=== PATIENT | female | born 1990 | race American Indian/Alaskan Native ===

== ENCOUNTER 2017-05-12 15:14 | Emergency (ER) | payer OTHER, MEDICAID ==
[2017-05-12] MEDS ORDERED: Sodium Chloride 0.9% 10 ML Syringe FLUSH PRN (15:15)
[2017-05-12] MEDS ORDERED: HYDROmorphone 1 MG/ML Syringe IVPUSH ONE (15:15)
[2017-05-12 15:23] VITALS: BP 132/80
[2017-05-12] MEDS ORDERED: HYDROmorphone 1 MG/ML Syringe IM ONE (15:43)
[2017-05-12 15:51] LABS: CHLORIDE,CL 102 mmol/L (101-111); SODIUM,NA 132 mmol/L (135-145)
[2017-05-12] MEDS ORDERED: Insulin Regular, Human 100 Units/ML 3 ML Vial IV ONE (16:15)
--- NOTE | 2017-05-22 07:36 | EDM.PDOC ---
Scribed by Ludy Christianson 05/12/17 [id number] for Moni Degroot NP ED HPI GENERAL MEDICAL PROBLEM - General Chief Complaint: Lower Extremity Injury/Pain Stated Complaint: CAME BY AMBULANCE Time Seen by Provider: 05/12/17 15:35 Source of Information: Reports: Patient, EMS, EMS Notes Reviewed, RN History Limitations: Reports: No Limitations - History of Present Illness INITIAL COMMENTS - FREE TEXT/NARRATIVE: Patient presents by [facility]. She was at work when a safe fell on her left lower leg up to the knee..It was 20 minutes to remove the safe. She has pain 10/10 to her left lower leg. Denies shortness of breath or chest pain. Onset: Today Location: Reports: Lower Extremity, Left Quality: Reports: Ache Severity: Severe Improves with: Reports: None Worsens with: Reports: None Associated Symptoms: Reports: No Other Symptoms Left Lower Leg Pain Score (Numeric/FACES): 10 - Related Data Allergies Allergy/AdvReac Type Severity Reaction Status Date / Time No Known Allergies Allergy Verified 07/27/15 23:00 Home Meds: Home Meds Insulin Aspart [Novolog Flexpen] 5 units SQ TID 05/12/17 [History] Insulin Detemir [Levemir] 30 units SQ BEDTIME 05/12/17 [History] Past Medical History - Past Health History Medical/Surgical History: Denies Medical/Surgical History Genitourinary History: Reports: Renal Calculus Endocrine/Metabolic History: Reports: Diabetes, Type II - Infectious Disease History Infectious Disease History: Reports: Chicken Pox Social & Family History - Tobacco Use Smoking Status *Q: Current Every Day Smoker Years of Tobacco use: 10 Packs/Tins Daily: 0.2 Used Tobacco, but Quit: No Month Tobacco Last Used: this month. Quit on sunday Second Hand Smoke Exposure: Yes - Alcohol Use Days Per Week of Alcohol Use: 0 Number of Drinks Per Day: 10 Total Drinks Per Week: 0 - Recreational Drug Use Recreational Drug Use: No Review of Systems - Review of Systems Review Of Systems: ROS reveals no pertinent complaints other than HPI. ED EXAM, GENERAL - Physical Exam Exam: See Below Exam Limited By: No Limitations General Appearance: Alert, WD/WN, No Apparent Distress Eye Exam: Bilateral Eye: Normal Inspection Ears: Normal External Exam, Normal Canal, Hearing Grossly Normal, Normal TMs Nose: Normal Inspection, Normal Mucosa, No Blood Throat/Mouth: Normal Inspection, Normal Lips, Normal Teeth, Normal Gums, Normal Oropharynx, Normal Voice, No Airway Compromise Head: Atraumatic, Normocephalic Neck: Normal Inspection, Supple, Non-Tender, Full Range of Motion Respiratory/Chest: No Respiratory Distress, Lungs Clear, Normal Breath Sounds, No Accessory Muscle Use, Chest Non-Tender Cardiovascular: Normal Peripheral Pulses, Regular Rate, Rhythm, No Edema, No Gallop, No JVD, No Murmur, No Rub GI/Abdominal: Normal Bowel Sounds, Soft, Non-Tender, No Organomegaly, No Distention, No Abnormal Bruit, No Mass (Female) Exam: Deferred Rectal (Female) Exam: Deferred Course - Vital Signs Last Recorded V/S: Last Vital Signs Temp 99.3 F 05/12/17 15:22 Pulse 103 H 05/12/17 15:22 Resp 20 05/12/17 15:22 BP 132/80 05/12/17 15:22 Pulse Ox 100 05/12/17 15:22 - Orders/Labs/Meds Labs: Laboratory Tests 05/12/17 05/12/17 Range/Units 15:25 15:25 WBC 6.4 (5.0-10.0) 10^3/uL RBC 4.59 (4.2-5.4) 10^6/uL Hgb 13.1 D (12.0-16.0) g/dL Hct 39.0 (37.0-47.0) % MCV 85.0 D (80-100) fL MCH 28.5 (27.0-34.0) pg MCHC 33.6 (33.0-35.0) g/dL Plt Count 245 (150-450) 10^3/uL Neut % (Auto) 66.5 (42.2-75.2) % Lymph % (Auto) 26.3 (20.5-50.1) % [place] % (Auto) 6.4 (2-8) % Eos % (Auto) 0.5 L (1.0-3.0) % Baso % (Auto) 0.3 (0.0-1.0) % Sodium 132 L (135-145) mmol/L Potassium 3.4 L (3.6-5.0) mmol/L Chloride 102 (101-111) mmol/L Carbon Dioxide 18.0 L (21.0-31.0) mmol/L Anion Gap 15.4 BUN 8 (7-18) mg/dL Creatinine 0.5 L (0.6-1.3) mg/dL Est Cr Clr Drug Dosing 165.81 mL/min Estimated GFR (MDRD) > 60 BUN/Creatinine Ratio 16.00 Glucose 426 H* (74-105) mg/dL Calcium 8.9 (8.4-10.2) mg/dl Total Bilirubin 1.3 H (0.2-1.0) mg/dL AST 22 (10-42) IU/L ALT 34 (10-60) IU/L Alkaline Phosphatase 73 (42-121) IU/L Total Protein 7.5 (6.7-8.2) g/dl Albumin 4.0 (3.2-5.5) g/dl Globulin 3.5 Albumin/Globulin Ratio 1.14 Meds: Medications Discontinued Medications Generic Name Dose Route Start Last Admin Trade Name Freq PRN Reason Stop Dose Admin Hydromorphone HCl 1 mg 05/12/17 15:15 Dilaudid IVPUSH 05/12/17 15:16 ONETIME ONE Hydromorphone HCl 1 mg 05/12/17 15:43 05/12/17 15:49 Dilaudid IM 05/12/17 15:44 1 mg ONETIME ONE Administration Insulin Human Regular 10 unit 05/12/17 16:15 05/12/17 16:45 Humulin R IV 05/12/17 16:16 10 units ONETIME ONE Administration Protocol Sodium Chloride 10 ml 05/12/17 15:15 05/12/17 16:35 Saline Flush FLUSH 10 ml ASDIRECTED PRN Administration Keep Vein Open - Radiology Interpretation Free Text/Narrative:: X=ray left lower: No fractures. See rad report. X-ray left foot: No acute findings. See rad report Departure - Departure Time of Disposition: 16:41 Disposition: Home, Self-Care 01 Condition: Fair Clinical Impression: Contusion - Discharge Information Instructions: Muscle Strain, [id number], Contusion, [id number] Referrals: Rodrigo Vail [Primary Care Provider] - Forms: ED Department Discharge Additional Instructions: Elevate the leg and ice as tolerated Tylenol or ibuprofen as directed for pain management Follow up with your primary care facility I have read and agree with the documentation that has been completed regarding this visit. By signing this record, I attest that the documentation was completed in my physical presence and is an accurate record of the encounter.
== END 2017-05-12 17:10 | disposition home or self-care (01) ==
LOC: DL.ED 15:14
DX: S80.12XA Contusion of left lower leg, initial encounter (principal); E11.9 Type 2 diabetes mellitus without complications; F17.210 Nicotine dependence, cigarettes, uncomplicated; Z79.4 Long term (current) use of insulin; W19.XXXA Unspecified fall, initial encounter; Y99.0 Civilian activity done for income or pay
CPT/HCPCS: 36415; 73590; 73630; 80053; 85025; 96372; 99284; J1170; J1815; J7050

== ENCOUNTER 2020-05-08 17:57 | Emergency (ER) | payer MEDICAID, OTHER ==
[2020-05-08] MEDS ORDERED: Sodium Chloride 0.9% 10 ML Syringe FLUSH PRN (18:15)
[2020-05-08] MEDS ORDERED: Acetaminophen 325 MG Tab PO ONE (18:18)
[2020-05-08] MEDS ORDERED: Dexamethasone 4 MG/ML SDV IVPUSH ONE (18:18)
[2020-05-08 18:19] VITALS: BP 131/85; PULSE 121
[2020-05-08] MEDS ORDERED: Codeine/Promethazine 10-6.25 MG/5 ML Syrup 5 ML UD Cup PO ONE (18:19)
[2020-05-08 18:53] LABS: PTT,PARTIAL THROMBOPLSTIN TIME 28.1 SEC (22.0-34.0)
[2020-05-08 19:17] LABS: ANION GAP 17.3 mEq/L (7-13); CHLORIDE,CL 99 mmol/L (98-107); SODIUM,NA 135 mmol/L (136-145)
[2020-05-08] MEDS ORDERED: Azithromycin 250 MG Tab PO ONE (20:12)
[2020-05-08] MEDS ORDERED: Albuterol 6.7 GM Inhaler INH ONE (20:12)
--- NOTE | 2020-05-08 20:15 | EDM.PDOC ---
ED HPI GENERAL MEDICAL PROBLEM - General Chief Complaint: General Stated Complaint: COVID POSITIVE Time Seen by Provider: 05/08/20 19:45 Source of Information: Reports: Patient, RN, RN Notes Reviewed History Limitations: Reports: No Limitations - History of Present Illness INITIAL COMMENTS - FREE TEXT/NARRATIVE: Patient presents to ER with complaint of shortness of breath, cough, fever and chills, body aches, nausea/vomiting/diarrhea. Patient states she found out today that she was positive for Covid. States her boyfriend has had it. States her symptoms have been approximately 2 weeks. Also states loss of smell and taste. Onset: Gradual Generalized Pain Score (Numeric/FACES): 7 - Related Data Allergies Allergy/AdvReac Type Severity Reaction Status Date / Time No Known Allergies Allergy Verified 05/08/20 18:02 Home Meds: Home Meds Insulin Aspart [Novolog Flexpen] 5 units SQ TID 05/12/17 [History] Insulin Detemir [Levemir] 30 units SQ BEDTIME 05/12/17 [History] Past Medical History - Past Health History Medical/Surgical History: Denies Medical/Surgical History Genitourinary History: Reports: Renal Calculus Endocrine/Metabolic History: Reports: Diabetes, Type II - Infectious Disease History Infectious Disease History: Reports: Chicken Pox, Novel Coronavirus Social & Family History - Family History Family Medical History: Noncontributory - Tobacco Use Tobacco Use Status *Q: Current Every Day Tobacco User Years of Tobacco use: 18 Packs/Tins Daily: 0.5 - Caffeine Use Caffeine Use: Reports: Soda - Recreational Drug Use Recreational Drug Use: No ED ROS GENERAL - Review of Systems Review Of Systems: Comprehensive ROS is negative, except as noted in HPI. ED EXAM, GENERAL - Physical Exam Exam: See Below Exam Limited By: No Limitations General Appearance: Alert, WD/WN, Mild Distress Eye Exam: Bilateral Eye: EOMI, Normal Inspection Ears: Normal External Exam, Hearing Grossly Normal Nose: Normal Inspection Throat/Mouth: Normal Inspection, Normal Voice, No Airway Compromise Head: Atraumatic, Normocephalic Neck: Normal Inspection, Supple, Non-Tender, Full Range of Motion Respiratory/Chest: No Respiratory Distress, No Accessory Muscle Use, Chest Non- Tender, Decreased Breath Sounds Cardiovascular: Normal Peripheral Pulses, Regular Rate, Rhythm, No Edema, No Gallop, No JVD, No Murmur, No Rub, Tachycardia Peripheral Pulses: 2+: Radial (L), Radial (R) GI/Abdominal: Normal Bowel Sounds, Soft, Non-Tender, No Organomegaly, No Distention, No Abnormal Bruit, No Mass (Female) Exam: Deferred Rectal (Female) Exam: Deferred Back Exam: Normal Inspection, Full Range of Motion, NT Extremities: Normal Inspection, Normal Range of Motion, Non-Tender, Normal Capillary Refill, No Pedal Edema Neurological: Alert, Oriented, CN II-XII Intact, Normal Cognition, Normal Gait, Normal Reflexes, No Motor/Sensory Deficits Psychiatric: Normal Affect, Normal Mood Skin Exam: Warm, Intact, Normal Color, No Rash, Diaphoretic Lymphatic: No Adenopathy Course - Vital Signs Last Recorded V/S: Last Vital Signs Temp 96.7 F L 05/08/20 18:17 Pulse 121 H 05/08/20 18:17 Resp 22 H 05/08/20 18:17 BP 131/85 05/08/20 18:17 Pulse Ox 99 05/08/20 18:17 - Orders/Labs/Meds Orders: Active Orders 24 hr Category Date Time Status Peripheral IV Insertion Adult [OM.PC] Stat Oth 05/08/20 18:16 Ordered Labs: Laboratory Tests 05/08/20 05/08/20 05/08/20 Range/Units 18:16 18:16 18:16 WBC 5.7 (5.0-10.0) 10^3/uL RBC 4.90 (4.2-5.4) 10^6/uL Hgb 15.1 D (12.0-16.0) g/dL Hct 43.3 (37.0-47.0) % MCV 88.4 D (80-100) fL MCH 30.8 (27.0-34.0) pg MCHC 34.9 (33.0-35.0) g/dL Plt Count 200 (150-450) 10^3/uL Neut % (Auto) 66.9 (42.2-75.2) % Lymph % (Auto) 26.0 (20.5-50.1) % [place] % (Auto) 6.9 (2-8) % Eos % (Auto) 0.0 L (1.0-3.0) % Baso % (Auto) 0.2 (0.0-1.0) % PT 9.9 (9.0-12.0) SEC INR 1.0 (0.9-1.2) APTT 28.1 (22.0-34.0) SEC D-Dimer, Quantitative 404 H (0-400) ng/mL Sodium 135 L (136-145) mmol/L Potassium 3.3 L (3.5-5.1) mmol/L Chloride 99 (98-107) mmol/L Carbon Dioxide 22 (21-32) mmol/L Anion Gap 17.3 H (7-13) mEq/L BUN 8 (7-18) mg/dL Creatinine 0.64 (0.55-1.02) mg/dL Est Cr Clr Drug Dosing 126.13 mL/min Estimated GFR (MDRD) > 60 BUN/Creatinine Ratio 12.5 (No establ ref range) Glucose 225 H (74-99) mg/dL Calcium 8.5 (8.5-10.1) mg/dL Total Bilirubin 0.6 (0.2-1.0) mg/dL AST 21 (15-37) U/L ALT 28 (14-59) U/L Alkaline Phosphatase 96 (46-116) U/L Creatine Kinase 29 (16-191) U/L Troponin I < 0.017 (0.000-0.056) ng/mL C-Reactive Protein 2.0 H (0.0-0.9) mg/dL Total Protein 7.5 (6.4-8.2) g/dL Albumin 3.3 L (3.4-5.0) g/dL Globulin 4.2 g/dL Albumin/Globulin Ratio 0.79 Urine Color (YELLOW) Urine Appearance (CLEAR) Urine pH (5.0-9.0) Ur Specific [place] (1.005-1.030) Urine Protein (NEGATIVE) Urine Glucose (UA) (NEGATIVE) Urine Ketones (NEGATIVE) Urine Occult Blood (NEGATIVE) Urine Nitrite (NEGATIVE) Urine Bilirubin (NEGATIVE) Urine Urobilinogen (0.2-1.0) mg/dL Ur Leukocyte Esterase (NEGATIVE) Urine HCG, Qual Urine Opiates Screen (NEGATIVE) Ur Oxycodone Screen (NEGATIVE) Urine Methadone Screen (NEGATIVE) Ur Barbiturates Screen (NEGATIVE) U Tricyclic Antidepress (NEGATIVE) Ur Phencyclidine Scrn (NEGATIVE) Ur Amphetamine Screen (NEGATIVE) U Methamphetamines Scrn (NEGATIVE) Urine MDMA Screen (NEGATIVE) U Benzodiazepines Scrn (NEGATIVE) Urine Cocaine Screen (NEGATIVE) U Marijuana (THC) Screen (NEGATIVE) 05/08/20 05/08/20 05/08/20 Range/Units 18:35 18:35 18:35 WBC (5.0-10.0) 10^3/uL RBC (4.2-5.4) 10^6/uL Hgb (12.0-16.0) g/dL Hct (37.0-47.0) % MCV (80-100) fL MCH (27.0-34.0) pg MCHC (33.0-35.0) g/dL Plt Count (150-450) 10^3/uL Neut % (Auto) (42.2-75.2) % Lymph % (Auto) (20.5-50.1) % [place] % (Auto) (2-8) % Eos % (Auto) (1.0-3.0) % Baso % (Auto) (0.0-1.0) % PT (9.0-12.0) SEC INR (0.9-1.2) APTT (22.0-34.0) SEC D-Dimer, Quantitative (0-400) ng/mL Sodium (136-145) mmol/L Potassium (3.5-5.1) mmol/L Chloride (98-107) mmol/L Carbon Dioxide (21-32) mmol/L Anion Gap (7-13) mEq/L BUN (7-18) mg/dL Creatinine (0.55-1.02) mg/dL Est Cr Clr Drug Dosing mL/min Estimated GFR (MDRD) BUN/Creatinine Ratio (No establ ref range) Glucose (74-99) mg/dL Calcium (8.5-10.1) mg/dL Total Bilirubin (0.2-1.0) mg/dL AST (15-37) U/L ALT (14-59) U/L Alkaline Phosphatase (46-116) U/L Creatine Kinase (16-191) U/L Troponin I (0.000-0.056) ng/mL C-Reactive Protein (0.0-0.9) mg/dL Total Protein (6.4-8.2) g/dL Albumin (3.4-5.0) g/dL Globulin g/dL Albumin/Globulin Ratio Urine Color Yellow (YELLOW) Urine Appearance Slightly cloudy (CLEAR) Urine pH 6.5 (5.0-9.0) Ur Specific [place] 1.025 (1.005-1.030) Urine Protein Negative (NEGATIVE) Urine Glucose (UA) 100 H (NEGATIVE) Urine Ketones Negative (NEGATIVE) Urine Occult Blood Negative (NEGATIVE) Urine Nitrite Negative (NEGATIVE) Urine Bilirubin Negative (NEGATIVE) Urine Urobilinogen 2.0 H (0.2-1.0) mg/dL Ur Leukocyte Esterase Negative (NEGATIVE) Urine HCG, Qual Negative Urine Opiates Screen Negative (NEGATIVE) Ur Oxycodone Screen Negative (NEGATIVE) Urine Methadone Screen Negative (NEGATIVE) Ur Barbiturates Screen Negative (NEGATIVE) U Tricyclic Antidepress Negative (NEGATIVE) Ur Phencyclidine Scrn Negative (NEGATIVE) Ur Amphetamine Screen Negative (NEGATIVE) U Methamphetamines Scrn Negative (NEGATIVE) Urine MDMA Screen Negative (NEGATIVE) U Benzodiazepines Scrn Negative (NEGATIVE) Urine Cocaine Screen Negative (NEGATIVE) U Marijuana (THC) Screen Negative (NEGATIVE) Meds: Medications Discontinued Medications Generic Name Dose Route Start Last Admin Trade Name Freq PRN Reason Stop Dose Admin Acetaminophen 650 mg 05/08/20 18:18 05/08/20 18:56 Tylenol PO 05/08/20 18:19 650 mg NOW ONE Administration Albuterol 6.7 gm 05/08/20 20:12 05/08/20 20:26 Proventil Hfa INH 05/08/20 20:13 1 puff ONETIME ONE Administration Azithromycin 500 mg 05/08/20 20:12 05/08/20 20:26 Zithromax PO 05/08/20 20:13 500 mg ONETIME ONE Administration Dexamethasone 6 mg 05/08/20 18:18 05/08/20 18:55 Decadron IVPUSH 05/08/20 18:19 6 mg ONETIME ONE Administration Promethazine HCl/Codeine 10 ml 05/08/20 18:19 05/08/20 18:55 Phenergan With Codeine PO 05/08/20 18:20 10 ml ONETIME ONE Administration Sodium Chloride 10 ml 05/08/20 18:15 05/08/20 18:56 Saline Flush FLUSH 10 ml ASDIRECTED PRN Administration Keep Vein Open Departure - Departure Time of Disposition: 20:13 Disposition: Home, Self-Care 01 Condition: Fair Clinical Impression: COVID-19 - Discharge Information *PRESCRIPTION DRUG MONITORING PROGRAM REVIEWED*: No *COPY OF PRESCRIPTION DRUG MONITORING REPORT IN PATIENT WADE: No Instructions: COVID-19 Frequently Asked Questions, COVID-19: How to Protect Yourself and Others - [facility], Prevent the Spread of COVID-19 if You Are Sick - [facility] Forms: ED Department Discharge Additional Instructions: Rx: Azithromycin 250 mg, first dose was given in ER, take 1 daily x4 days starting on 05/09/2020 Albuterol inhaler, 1 to 2 puffs every 4-6 hours as needed for shortness of breath May use Tylenol and/or ibuprofen as directed for body aches Use [id number] cough syrup for cough Return to the ER with any worsening of symptoms Stay in quarantine until you are instructed by the [facility] that you are done Sepsis Event Note (ED) - Evaluation Sepsis Screening Result: No Definite Risk - Focused Exam Vital Signs: Vital Signs Temp Pulse Resp BP Pulse Ox 05/08/20 18:17 96.7 F L 121 H 22 H 131/85 99
== END 2020-05-08 20:30 | disposition home or self-care (01) ==
LOC: DL.ED 17:57
DX: U07.1 COVID-19 (principal); E11.9 Type 2 diabetes mellitus without complications; F17.210 Nicotine dependence, cigarettes, uncomplicated; Z79.4 Long term (current) use of insulin
CPT/HCPCS: 36415; 80053; 80305; 81003; 81025; 82550; 84484; 85025; 85379; 85610; 85730; 86140; 93005; 96374; 99285; A9270; J1100; 99283

== ENCOUNTER 2020-09-01 08:07 | Emergency (ER) | payer OTHER ==
--- NOTE | 2020-09-01 08:13 | EDM.PDOC ---
ED HPI GENERAL MEDICAL PROBLEM - General Chief Complaint: Upper Extremity Injury/Pain Stated Complaint: DISLOCATED RIGHT ARM Time Seen by Provider: 09/01/20 08:10 Source of Information: Reports: Patient, Old Records, RN, RN Notes Reviewed History Limitations: Reports: No Limitations - History of Present Illness INITIAL COMMENTS - FREE TEXT/NARRATIVE: Pt presents to ER from home by POV with c/o waking three days ago with right arm/shoulder pain. Pt thinks the shoulder is dislocated. Denies injury. Admits to limited ROM and stiffness. Hx of traumatic right shoulder dislocation in 2016, one time only. Onset Date: 08/29/20 Duration: Constant Location: Reports: Upper Extremity, Right Quality: Reports: Ache Severity: Severe Improves with: Reports: Immobilization Worsens with: Reports: Movement Associated Symptoms: Reports: No Other Symptoms Treatments [employer]: Reports: NSAIDS Right Shoulder Pain Score (Numeric/FACES): 9 - Related Data Allergies Allergy/AdvReac Type Severity Reaction Status Date / Time No Known Allergies Allergy Verified 09/01/20 08:24 Home Meds: Home Meds Insulin Aspart [Novolog Flexpen] 5 units SQ TID 05/12/17 [History] Insulin Detemir [Levemir] 20 units SQ BEDTIME 05/12/17 [History] Past Medical History - Past Health History Medical/Surgical History: Denies Medical/Surgical History Genitourinary History: Reports: Renal Calculus Endocrine/Metabolic History: Reports: Diabetes, Type II, IDDM - Infectious Disease History Infectious Disease History: Reports: Chicken Pox, Novel Coronavirus Social & Family History - Family History Family Medical History: No Pertinent Family History - Caffeine Use Caffeine Use: Reports: Soda - Living Situation & Occupation Living situation: Reports: with Family Occupation: Unemployed Review of Systems - Review of Systems Review Of Systems: Comprehensive ROS is negative, except as noted in HPI. ED EXAM, GENERAL - Physical Exam Exam: See Below Exam Limited By: No Limitations General Appearance: Alert, WD/WN, No Apparent Distress Throat/Mouth: Normal Voice, No Airway Compromise Head: Atraumatic, Normocephalic Neck: Normal Inspection, Non-Tender, Full Range of Motion Respiratory/Chest: No Respiratory Distress Cardiovascular: Normal Peripheral Pulses Peripheral Pulses: 3+: Radial (L), Radial (R) Back Exam: Normal Inspection, Full Range of Motion Extremities: Normal Capillary Refill, Arm Pain (Right shoulder), Limited Range of Motion (Right shoulder). No: Joint Swelling, Increased Warmth, Mottled, Pallor, Redness Neurological: Alert, Oriented, No Motor/Sensory Deficits Psychiatric: Normal Mood Skin Exam: Warm, Dry, Intact, Normal Color, No Rash Course - Vital Signs Last Recorded V/S: Last Vital Signs Temp 97.1 F 09/01/20 08:20 Pulse 73 09/01/20 08:20 Resp 16 09/01/20 08:20 BP 116/90 09/01/20 08:20 Pulse Ox 99 09/01/20 08:20 - Orders/Labs/Meds Orders: Active Orders 24 hr Category Date Time Status Acetaminophen/HYDROcodone [[place] 325-10 MG] Med 09/01/20 09:42 Once 1 tab PO ONETIME ONE Lidocaine 5% Med 09/01/20 09:42 Once 30 gm TOP ONETIME ONE Labs: Laboratory Tests 09/01/20 09/01/20 Range/Units 08:14 08:17 POC Glucose 284 H (70-105) mg/dl Urine HCG, Qual Negative - Radiology Interpretation Free Text/Narrative:: [facility] [place] [facility] Final Radiology Report Call: [phone] assistance Online chat: [email or web address] Name: LEO REEVES Age: 30Years F Date: 09/01/2020 SSN: -- : [id number] Study: CR SHOULDER COMP RT Requesting Physician: JUDITH BEJARANO Images: 3 Addl Studies: Provided Clinical History: right shoulder pain, no acute injury Contrast: Contrast Medium: Contrast Amount: Contrast Method: CONFIDENTIALITY STATEMENT This report is intended only for use by the referring physician, and only in accordance with law. If you received this in error, call [phone]. Page 1 of 1 PROCEDURE INFORMATION: Exam: XR Right Shoulder Exam date and time: 09/01/2020 8:50 AM Age: 30 years old Clinical indication: Other: Right shoulder pain, no acute injury TECHNIQUE: Imaging protocol: XR Right shoulder. Views: 2 or more views. COMPARISON: No relevant prior studies available. FINDINGS: Bones/joints: Old right clavicular fracture.There is no evidence of acute fracture or dislocation. No significant narrowing of the joint spaces. No lytic or blastic lesions. Soft tissues: No radiopaque foreign body within the soft tissues. IMPRESSION: No acute findings appreciated. Thank you for allowing us to participate in the care of your patient. Dictated and Authenticated by: Bakari Cat MD 09/01/2020 9:01 AM Central Time ([place] & [place]) Departure - Departure Time of Disposition: 09:43 Disposition: Home, Self-Care 01 Condition: Good Clinical Impression: Adhesive capsulitis of right shoulder Right shoulder pain Qualifiers: Chronicity: acute Qualified Code(s): M25.511 - Pain in right shoulder - Discharge Information *PRESCRIPTION DRUG MONITORING PROGRAM REVIEWED*: Not Applicable *COPY OF PRESCRIPTION DRUG MONITORING REPORT IN PATIENT WADE: Not Applicable Instructions: Adhesive Capsulitis Forms: ED Department Discharge Additional Instructions: Rx: Hydrocodone APAP 5mg/325mg Rx: Naprosyn 500mg Stretch and try to maintain range of motion of the right shoulder. Follow up in clinic for referral to physical therapy and/or green building design specialist. Sepsis Event Note (ED) - Focused Exam Vital Signs: Vital Signs Temp Pulse Resp BP Pulse Ox 09/01/20 08:20 97.1 F 73 16 116/90 99 - My Orders Last 24 Hours: My Active Orders 09/01/20 09:42 Acetaminophen/HYDROcodone [[place] 325-10 MG] 1 tab PO ONETIME ONE Lidocaine 5% 30 gm TOP ONETIME ONE - Assessment/Plan Last 24 Hours: My Active Orders 09/01/20 09:42 Acetaminophen/HYDROcodone [[place] 325-10 MG] 1 tab PO ONETIME ONE Lidocaine 5% 30 gm TOP ONETIME ONE
[2020-09-01 08:24] VITALS: BP 116/90; PULSE 73
--- NOTE | 2020-09-01 09:01 | CR ---
PROCEDURE INFORMATION: Exam: XR Right Shoulder Exam date and time: 09/01/2020 8:50 AM Age: 30 years old Clinical indication: Other: Right shoulder pain, no acute injury TECHNIQUE: Imaging protocol: XR Right shoulder. Views: 2 or more views. COMPARISON: No relevant prior studies available. FINDINGS: Bones/joints: Old right clavicular fracture.There is no evidence of acute fracture or dislocation. No significant narrowing of the joint spaces. No lytic or blastic lesions. Soft tissues: No radiopaque foreign body within the soft tissues. IMPRESSION: No acute findings appreciated.
[2020-09-01] MEDS ORDERED: Lidocaine 5% Oint 35.44 GM Tube TOP ONE (09:42)
[2020-09-01] MEDS ORDERED: Acetaminophen/HYDROcodone 325-10 MG Tab PO ONE (09:42)
== END 2020-09-01 09:40 | disposition home or self-care (01) ==
LOC: DL.ED 08:07
DX: M75.91 Shoulder lesion, unspecified, right shoulder (principal); E11.9 Type 2 diabetes mellitus without complications; Z79.4 Long term (current) use of insulin
CPT/HCPCS: 73030; 81025; 82962; 99283; A9270

== ENCOUNTER 2020-12-18 16:24 | Emergency (ER) | payer SELFPAY ==
[2020-12-18 16:38] VITALS: BP 117/86; PULSE 85
[2020-12-18] MEDS ORDERED: HYDROmorphone 0.5 MG/0.5 ML Syringe IVPUSH ONE (16:52)
[2020-12-18] MEDS ORDERED: Lactated Ringers 1,000 ML IV ONE (16:52)
[2020-12-18 17:46] LABS: ANION GAP 15.7 mEq/L (7-13)
[2020-12-18 17:57] LABS: CHLORIDE,CL 100 mmol/L (98-107); SODIUM,NA 137 mmol/L (136-145)
[2020-12-18] MEDS ORDERED: Ketorolac 30 MG/ML SDV IVPUSH ONE (17:59)
--- NOTE | 2020-12-18 18:07 | EDM.PDOC ---
ED HPI GENERAL MEDICAL PROBLEM - General Chief Complaint: Back Pain or Injury Stated Complaint: LOWER BACK PAIN Time Seen by Provider: 12/18/20 16:30 - History of Present Illness INITIAL COMMENTS - FREE TEXT/NARRATIVE: Neetu is a 30-year-old woman who presents with several hour history of worsening flank pain bilaterally. She states that she cannot remember doing anything to injure her back yesterday or today. She does have a history of some muscle strain in her back, but nothing like this. She also reports having history of kidney stones, but that this pain feels quite a bit different. She is also feeling somewhat bloated with her abdomen. She has had no fevers or chills, no nausea or vomiting. She does not report past issues with constipation. Lower Back Pain Score (Numeric/FACES): 6 - Related Data Allergies Allergy/AdvReac Type Severity Reaction Status Date / Time No Known Allergies Allergy Verified 12/18/20 16:38 Home Meds: Home Meds Insulin Aspart [Novolog Flexpen] 5 units SQ TID 05/12/17 [History] Insulin Detemir [Levemir] 20 units SQ BEDTIME 05/12/17 [History] Past Medical History - Past Health History Medical/Surgical History: Denies Medical/Surgical History HEENT History: Reports: Impaired Vision Other HEENT History: wears glasses Cardiovascular History: Reports: None Respiratory History: Reports: None Gastrointestinal History: Reports: None Genitourinary History: Reports: Renal Calculus [employer] History: Reports: None Musculoskeletal History: Reports: Arthritis Neurological History: Reports: Brain Injury, Concussion, Head Trauma Psychiatric History: Reports: Depression Endocrine/Metabolic History: Reports: Diabetes, Type II, IDDM Hematologic History: Reports: None Immunologic History: Reports: None Oncologic (Cancer) History: Reports: None Dermatologic History: Reports: None - Infectious Disease History Infectious Disease History: Reports: Chicken Pox, Novel Coronavirus - Past Surgical History Head Surgeries/Procedures: Reports: None Social & Family History - Family History Family Medical History: No Pertinent Family History - Tobacco Use Tobacco Use Status *Q: Current Every Day Tobacco User Years of Tobacco use: 10 Packs/Tins Daily: 0.5 Second Hand Smoke Exposure: No - Caffeine Use Caffeine Use: Reports: Coffee, Soda - Recreational Drug Use Recreational Drug Use: No - Living Situation & Occupation Living situation: Reports: with Family Occupation: Unemployed ED ROS GENERAL - Review of Systems Review Of Systems: Comprehensive ROS is negative, except as noted in HPI. ED EXAM, GI/ABD - Physical Exam Exam: See Below Text/Narrative:: General: Patient is a 30-year-old woman in no acute distress Oropharynx is clear, mucous membranes are moist Heart: Regular rate and rhythm, no murmurs Lungs: Clear to auscultation throughout Abdomen is soft, diffusely tender to palpation. Hypoactive bowel sounds heard in all 4 quadrants. She has some CVA tenderness with percussion Upright abdominal x-ray shows a large amount of stool in her ascending, transverse, and descending colon Peripheral IV was started, she was given 1 L of lactated Ringer's as well as 0.5 mg of IV hydromorphone. Course - Vital Signs Last Recorded V/S: Last Vital Signs Temp 96.6 F L 12/18/20 16:33 Pulse 85 12/18/20 16:33 Resp 16 12/18/20 16:33 BP 117/86 12/18/20 16:33 Pulse Ox 99 12/18/20 16:33 - Orders/Labs/Meds Labs: Laboratory Tests 12/18/20 12/18/20 12/18/20 Range/Units 16:45 16:45 17:03 WBC 7.2 (5.0-10.0) 10^3/uL RBC 4.72 (4.2-5.4) 10^6/uL Hgb 14.3 (12.0-16.0) g/dL Hct 41.6 (37.0-47.0) % MCV 88.1 (80-100) fL MCH 30.3 (27.0-34.0) pg MCHC 34.4 (33.0-35.0) g/dL Plt Count 265 (150-450) 10^3/uL Neut % (Auto) 54.7 (42.2-75.2) % Lymph % (Auto) 39.0 (20.5-50.1) % [place]verse % (Auto) 4.9 (2-8) % Eos % (Auto) 1.1 (1.0-3.0) % Baso % (Auto) 0.3 (0.0-1.0) % Sodium (136-145) mmol/L Potassium (3.5-5.1) mmol/L Chloride (98-107) mmol/L Carbon Dioxide (21-32) mmol/L Anion Gap (7-13) mEq/L BUN (7-18) mg/dL Creatinine (0.55-1.02) mg/dL Est Cr Clr Drug Dosing mL/min Estimated GFR (MDRD) BUN/Creatinine Ratio (No establ ref range) Glucose (70-99) mg/dL Calcium (8.5-10.1) mg/dL Total Bilirubin (0.2-1.0) mg/dL AST (15-37) U/L ALT (14-59) U/L Alkaline Phosphatase (46-116) U/L Total Protein (6.4-8.2) g/dL Albumin (3.4-5.0) g/dL Globulin Albumin/Globulin Ratio Urine Color Yellow (YELLOW) Urine Appearance Clear (CLEAR) Urine pH 5.5 (5.0-9.0) Ur Specific [place] 1.020 (1.005-1.030) Urine Protein Negative (NEGATIVE) Urine Glucose (UA) 500 H (NEGATIVE) Urine Ketones Negative (NEGATIVE) Urine Occult Blood Negative (NEGATIVE) Urine Nitrite Negative (NEGATIVE) Urine Bilirubin Negative (NEGATIVE) Urine Urobilinogen 0.2 (0.2-1.0) mg/dL Ur Leukocyte Esterase Negative (NEGATIVE) Urine HCG, Qual Negative 12/18/20 Range/Units 17:03 WBC (5.0-10.0) 10^3/uL RBC (4.2-5.4) 10^6/uL Hgb (12.0-16.0) g/dL Hct (37.0-47.0) % MCV (80-100) fL MCH (27.0-34.0) pg MCHC (33.0-35.0) g/dL Plt Count (150-450) 10^3/uL Neut % (Auto) (42.2-75.2) % Lymph % (Auto) (20.5-50.1) % Traverse % (Auto) (2-8) % Eos % (Auto) (1.0-3.0) % Baso % (Auto) (0.0-1.0) % Sodium 137 (136-145) mmol/L Potassium 3.7 (3.5-5.1) mmol/L Chloride 100 (98-107) mmol/L Carbon Dioxide 25 (21-32) mmol/L Anion Gap 15.7 H (7-13) mEq/L BUN 6 L (7-18) mg/dL Creatinine 0.51 L (0.55-1.02) mg/dL Est Cr Clr Drug Dosing 159.78 mL/min Estimated GFR (MDRD) > 60 BUN/Creatinine Ratio 11.8 (No establ ref range) Glucose 291 H (70-99) mg/dL Calcium 8.7 (8.5-10.1) mg/dL Total Bilirubin 0.4 (0.2-1.0) mg/dL AST < 5 L (15-37) U/L ALT 20 (14-59) U/L Alkaline Phosphatase 141 H (46-116) U/L Total Protein 7.4 (6.4-8.2) g/dL Albumin 3.7 (3.4-5.0) g/dL Globulin 3.7 Albumin/Globulin Ratio 1.0 Urine Color (YELLOW) Urine Appearance (CLEAR) Urine pH (5.0-9.0) Ur Specific [place] (1.005-1.030) Urine Protein (NEGATIVE) Urine Glucose (UA) (NEGATIVE) Urine Ketones (NEGATIVE) Urine Occult Blood (NEGATIVE) Urine Nitrite (NEGATIVE) Urine Bilirubin (NEGATIVE) Urine Urobilinogen (0.2-1.0) mg/dL Ur Leukocyte Esterase (NEGATIVE) Urine HCG, Qual Meds: Medications Discontinued Medications Generic Name Dose Route Start Last Admin Trade Name Freq PRN Reason Stop Dose Admin Hydromorphone HCl 0.5 mg 12/18/20 16:52 12/18/20 17:11 Hydromorphone 0.5 Mg/0.5 Ml Syringe IVPUSH 12/18/20 16:53 0.5 mg ONETIME ONE Administration Lactated Ringer's 1,000 mls @ 999 mls/hr 12/18/20 16:52 12/18/20 17:11 Ringers, Lactated IV 12/18/20 17:52 999 mls/hr .BOLUS ONE Administration Ketorolac Tromethamine 30 mg 12/18/20 17:59 12/18/20 18:10 Ketorolac 30 Mg/Ml Sdv IVPUSH 12/18/20 18:00 30 mg ONETIME ONE Administration Departure - Departure Time of Disposition: 18:30 Disposition: Home, Self-Care 01 Clinical Impression: Constipation Qualifiers: Constipation type: unspecified constipation type Qualified Code(s): K59.00 - Constipation, unspecified - Discharge Information *PRESCRIPTION DRUG MONITORING PROGRAM REVIEWED*: Not Applicable *COPY OF PRESCRIPTION DRUG MONITORING REPORT IN PATIENT WADE: Not Applicable Instructions: Constipation, Adult, [id number] Forms: ED Department Discharge Additional Instructions: Purchase 255gram container of miralax (polyethylene glycol) and add one half of the container to a 32 ounce bottle of gatorade. Drink it all, should help you get cleaned out within a few hours. Okay to repeat as needed until you feel better Sepsis Event Note (ED) - Evaluation Sepsis Screening Result: No Definite Risk - Problem List & Annotations (1) Constipation SNOMED Code(s): 25057987 Code(s): K59.00 - CONSTIPATION, UNSPECIFIED Status: Acute Qualifiers: Constipation type: unspecified constipation type Qualified Code(s): K59.00 - Constipation, unspecified - Problem List Review Problem List Initiated/Reviewed/Updated: Yes - Assessment/Plan Assessment:: 1. Acute constipation Plan: 1. She was given instructions on using MiraLAX at home to clean herself out. She will follow-up with her primary care physician if she does not have any improvement
--- NOTE | 2020-12-18 18:32 | CR ---
PROCEDURE INFORMATION: Exam: XR Abdomen Exam date and time: 12/18/2020 5:35 PM Age: 30 years old Clinical indication: Other: Pain; Additional info: Flank pain TECHNIQUE: Imaging protocol: XR of the abdomen. Views: Frontal supine view of the abdomen. 1 View. COMPARISON: No relevant prior studies available. FINDINGS: Gastrointestinal tract: Normal. No bowel dilation. Bones/joints: Unremarkable. IMPRESSION: No acute findings.
== END 2020-12-18 18:48 | disposition home or self-care (01) ==
LOC: DL.ED 16:24
DX: K59.00 Constipation, unspecified (principal); E11.9 Type 2 diabetes mellitus without complications; Z79.4 Long term (current) use of insulin; Z72.0 Tobacco use
CPT/HCPCS: 36415; 74018; 80053; 81003; 81025; 85025; 96374; 96375; 99282; 99284-25; J1170; J1885; J7120